=== PATIENT | female | born 1965 | race Caucasian/White ===

== ENCOUNTER → 2023-06-25 07:18 | Outpatient (REF) | payer OTHER, SELFPAY | LOC: HWWDC 07:18 | PROVIDERS: ATTENDING PHYSICIAN Family Medicine | DX: Z12.31 Encounter for screening mammogram for malignant neoplasm of breast (principal) | CPT/HCPCS: 77063; 77067 ==

== ENCOUNTER 2024-06-09 06:19 | Day surgery (SDC) | payer OTHER, SELFPAY | END 2024-06-09 11:08 | disposition home or self-care (01) | LOC: GI 06:19 | PROVIDERS: ATTENDING PHYSICIAN Internal Medicine Gastroenterology | DX: Z12.11 Encounter for screening for malignant neoplasm of colon (principal); K64.8 Other hemorrhoids; K57.30 Diverticulosis of large intestine without perforation or abscess without bleeding; K63.5 Polyp of colon | CPT/HCPCS: 45380; 88305 ==

== ENCOUNTER → 2024-06-30 07:56 | Outpatient (REF) | payer OTHER, SELFPAY | LOC: HWWDC 07:56 | PROVIDERS: ATTENDING PHYSICIAN Family Medicine | DX: Z12.31 Encounter for screening mammogram for malignant neoplasm of breast (principal) | CPT/HCPCS: 77063; 77067 ==